=== PATIENT | female | born 1990 | race Two or more races ===

== ENCOUNTER 2024-10-04 12:13 | Emergency (ER) | payer MEDICAID, SELFPAY ==
[2024-10-04 13:39] VITALS: BP 117/79; PULSE 70; RESP 18; TEMP 37.2; O2SAT 99
--- NOTE | 2024-10-04 13:59 | XR_ITS ---
Examination: Complete OB ultrasound, less than 14 weeks, transabdominal Date and time of exam: October 04, 2024 1532 hrs. Indications: Vaginal bleeding today Technique: Obstetrical ultrasound images less than 14 weeks performed via transabdominal imaging Findings: Uterus 12.1 x 4.7 x 5.9 cm Empty intrauterine gestational sac 1.12 cm corresponds to 7 weeks 0 days gestational age No pole No cardiac activity Right ovary 2.8 x 1.7 x 2.1 cm arterial flow Left ovary obscured by bowel gas Impression: Empty intrauterine gestational sac corresponding to 7 weeks 0 days gestational age Recommend transvaginal pelvic sonography follow-up to exclude demise
--- NOTE | 2024-10-04 14:01 | PD.EDRME ---
Rapid Medical Screening Exam RME Arrival date/time: 10/04/24 12:13 This is a 34-year-old female that comes in with complaints of vaginal spotting for the last 3 days. Patient states she has not had spotting today but 2 days prior she did. Patient states she is a 5 para 3. Patient has had 1 miscarriage in the past. Patient reports that she is approximately 7 weeks . Patient complains of back pain, abdominal pain patient has had some urinary discomfort.. Patient denies any past medical history. I have greeted and performed a focused initial assessment of this patient. Initial appropriate labs ordered at this time. A comprehensive ED assessment and evaluation of the patient and analysis of all test and completion of medical decision making process will be conducted by additional ED provider. Chief Complaint: Vaginal Bleeding Time Seen by Provider: 10/04/24 13:42 Vital signs: Vital Signs Temperature 98.9 F 10/04/24 13:39 Pulse Rate 70 10/04/24 13:39 Respiratory Rate 18 10/04/24 13:39 Blood Pressure 117/79 10/04/24 13:39 Pulse Oximetry (%) 99 10/04/24 13:39 Oxygen Delivery Method Room Air 10/04/24 13:39
[2024-10-04 14:35] LABS: Basophils % (Auto) 0 % (0-2.5); Eosinophils # (Auto) 0.2 Thou/mm3 (0.0-0.5); Eosinophils % (Auto) 2 % (0-10); Hematocrit 40.5 % (36.0-46.0); Hemoglobin 13.8 g/dL (12.0-16.0); Immature Granulocytes % (Auto) 0 % (0-0); Immature Granulocytes Auto 0.03 Thou/mm3 (0.00-0.00); Lymphocytes % (Auto) 24 % (10-50); Mean Corpuscular HGB Conc 34.1 g/dl (31.0-37.0); Mean Corpuscular Hemoglobin 29.5 pg (25.0-35.0); Mean Corpuscular Volume 87 fL (80-100); Monocytes # (Auto) 0.4 Thou/mm3 (0.0-0.8); Monocytes % (Auto) 6 % (0-12); Neutrophils # (Auto) 5.4 Thou/mm3 (1.8-7.7); Neutrophils % (Auto) 68 % (37-80); Nucleated Red Blood Cell % 0 /100 WBC (0); Platelet Count 222 Thou/mm3 (140-440); RDW Standard Deviation 39.8 fL (36.4-46.3); Red Blood Count 4.68 Miln/mm3 (4.00-5.20)
[2024-10-04 15:06] LABS: Alanine Aminotransferase 21 U/L (10-49); Albumin, Serum 4.9 gm/dL (3.5-5.0); Albumin/Globulin Ratio 1.8 (1.2-2.2); Alkaline Phosphatase 86 U/L (46-116); Anion Gap 7 (7-16); Aspartate Amino Transferase 21 U/L (0-34); BUN/Creatinine Ratio 13 Ratio (12-20); Bilirubin,Total 0.5 mg/dL (0.3-1.2); Blood Urea Nitrogen 9 mg/dL (9-23); Calcium 9.4 mg/dL (8.3-10.6); Calcium (Corrected) 9.4 mg/dL (8.5-10.1); Carbon Dioxide 26.7 mMol/L (20.0-31.0); Chloride 103 mMol/L (98-107); Creatinine (Component) 0.7 mg/dL (0.6-1.3); Globulin 2.7 gm/dL (2.3-3.5); Glucose 119 mg/dL (74-106); Lipase 52 U/L (12-53); Osmolality,Calculated 273 (275-295); Potassium 3.7 mMol/L (3.4-5.1); Sodium 137 mMol/L (136-145); Total Protein 7.6 gm/dL (5.7-8.2); eGFR > 60 See Note
[2024-10-04 15:14] LABS: Collection Type, Urine Voided
[2024-10-04 15:22] LABS: Bacteria,Urine 1+; Bilirubin,Urine Negative (Negative); Blood,Urine Negative (Negative); Clarity,Urine Clear (Clear/Hazy); Color,Urine Lt-Yellow (Lt Yel-Yel); Glucose, Urine Negative (Negative); Ketones,Urine Negative (Negative); Leukocyte Esterase,Urine Negative (Negative); Nitrite,Urine Negative (Negative); PH,Urine 6.5 (5.0-7.0); Protein,Urine Negative (Neg - Trace); RBC,Urine 1 /hpf (0-3); Specific Gravity,Urine 1.012 (1.001-1.035); Squamous Epithelial Cell,Urine 2 /hpf (0-5); Urobilinogen,Urine Negative mg/dL (0.0-1.0); WBC,Urine < 1 /hpf (0-5)
[2024-10-04 15:24] LABS: Beta HCG,Quantitative 5582 mIU/mL (<5.0)
[2024-10-04 15:30] LABS: Culture Indicated,Urine Yes
[2024-10-04 16:41] VITALS: BP 120/76; PULSE 71; RESP 16; TEMP 37.1; O2SAT 100
--- NOTE | 2024-10-04 16:48 | PD.EDADULT ---
ED General RME/HPI General Chief complaint: Vaginal Bleeding Stated complaint: VAGINAL BLEEDING Time Seen by Provider: 10/04/24 13:42 Arrival date/time: 10/04/24 12:13 CC: Vaginal spotting low abdominal cramping low back pain onset 4 days ago, the patient is G5, P3 estimated at 7 weeks. Patient denies fever chills shortness of breath or difficulty breathing. RME / HPI RME / HPI narrative: 10/04/24 12:13 This is a 34-year-old female that comes in with complaints of vaginal spotting for the last 3 days. Patient states she has not had spotting today but 2 days prior she did. Patient states she is a 5 para 3. Patient has had 1 miscarriage in the past. Patient reports that she is approximately 7 weeks . Patient complains of back pain, abdominal pain patient has had some urinary discomfort.. Patient denies any past medical history. I have greeted and performed a focused initial assessment of this patient. Initial appropriate labs ordered at this time. A comprehensive ED assessment and evaluation of the patient and analysis of all test and completion of medical decision making process will be conducted by additional ED provider. Related Data Previous Rx's ?Medication ?Instructions ?Recorded cyclobenzaprine 10 mg tablet 10 mg PO HS #14 tabs 10/01/23 meloxicam 7.5 mg tablet 7.5 mg PO QDAY #10 tabs 10/01/23 Allergies Allergy/AdvReac Type Severity Reaction Status Date / Time No Known Allergies Allergy Verified 10/04/24 12:18 Review of Systems Review of Systems Narrative Review of Systems: GEN: No fever, no chills, no weight loss EYES: No discharge, no visual changes, no pain HEENT: No ear pain, no congestion, no sore throat PULM: No shortness of breath, no cough, no congestion CV: No chest pain, no dyspnea on exertion, no palpitations GI: No nausea, no vomiting, no diarrhea, no pain, no constipation : No frequency, no urgency, no dysuria MUSC/SKEL: No joint pain, no back pain SKIN: No rash PSYCH: No hallucinations, no depression HEME/LYMPH: No easy bleeding or bruising tendencies NEURO: No weakness, no headache Past Medical History Past Medical History CARDIAC: Negative Congestive Heart Failure RESPIRATORY: Negative Chronic Obstructive Pulmonary Disease (COPD) GENITOURINARY: Negative Renal Disease ENDOCRINE: Negative Diabetes Mellitus Type 1 or Diabetes Mellitus Type 2 Surgical History SURGICAL: Positive Section Social History SMOKING STATUS: Never smoker ED Exam Narrative Physical exam: [General: Not in any acute distress Head normocephalic HEENT: Within acceptable limits Neck is supple nontender Chest equal chest rise nontender to palpation Respiratory: Clear to auscultation no wheezes crackles or rubs CV: Rate rhythm is regular no murmurs rubs or clicks Abdomen is distended secondary to body habitus soft nontender no masses positive bowel sounds all 4 quadrants Back: No CVA tenderness no spinous process tenderness from cervical spine thoracic and lumbar spine Skin: Intact no petechiae rash induration ulceration or crepitus Extremities: Moving all extremity against resistance cap refill less than 2 seconds neurosensory intact Neuro: Awake alert oriented x3 Glascow coma 15 no focal deficits] Course Quality Measures none Orders Category Date Time Status US OB <= 14 weeks fetus Stat Exams 10/04/24 13:59 Completed ABO/RH Type - Stat Lab 10/04/24 14:18 Completed Beta HCG,Quantitative Stat Lab 10/04/24 14:18 Completed CBC Stat Lab 10/04/24 14:18 Completed Comprehensive Metabolic Panel Stat Lab 10/04/24 14:18 Completed Lipase Stat Lab 10/04/24 14:18 Completed Urinalysis, C/S if Indicated Stat Lab 10/04/24 14:30 Completed Urine Culture Stat Lab 10/04/24 14:30 Received Vital Signs Vital signs: Vital Signs Temperature 98.9 F 10/04/24 13:39 Pulse Rate 70 10/04/24 13:39 Respiratory Rate 18 10/04/24 13:39 Blood Pressure 117/79 10/04/24 13:39 Pulse Oximetry (%) 99 10/04/24 13:39 Oxygen Delivery Method Room Air 10/04/24 13:39 [facility] Patient data External records reviewed:: [facility] previous records Clinical information provided by:: patient Social determinants that could affect healthcare access:: none Patient has the following chronic illnesses:: Obesity How is presenting disease/condition affected by chronic disease/condition?: uneffected by Evaluation data The following diagnostics were reviewed and interpreted by me:: lab results and radiology exam(s) Lab and/or radiology exams considered but not ordered:: CBC shows no acute leukocytosis anemia thrombocytopenia CMP shows no acute electrolyte imbalances renal impairment transaminitis or T. bili elevation ABO Rh is a positive Quantitative hCG is 5500 Ultrasound shows a gestational sac at 7 weeks 0 days with no heart tones Interpretation Summary: Threatened miscarriage Medications Medications considered but not ordered:: None Medication administrations:: None Consultations Consultation(s) initiated? (list below): No Diagnosis Differential Diagnosis ED Complaint MDM: Ectopic first trimester vaginal bleeding threatened miscarriage Most likely diagnosis given after review of the tests above:: Threatened miscarriage Admission Indicated Admission indicated?: not indicated Explain why admission is indicated or not indicated:: Stable for outpatient follow-up Admission Request Was there a request for admission?: No Disposition Plan Disposition Plan: Discharge Discharge Attestation Discharge Attestation: The patient and all family members were given an opportunity to ask questions and understood the discharge instructions. Discharge instructions specifically effects, indications for sooner follow up or return to the emergency department, and the expected course of current diagnosis. Patient condition: Stable Medical Decision Making Differential Diagnosis Differential Diagnosis: Ectopic first trimester vaginal bleeding threatened miscarriage Lab Data 10/04/24 14:18 10/04/24 14:18 Labs: Lab Results 10/04/24 10/04/24 Range/Units 14:18 14:30 WBC 8.0 (3.6-11.0) Thou/mm3 RBC 4.68 (4.00-5.20) Miln/mm3 Hgb 13.8 (12.0-16.0) g/dL Hct 40.5 (36.0-46.0) % MCV 87 (80-100) fL MCH 29.5 (25.0-35.0) pg MCHC 34.1 (31.0-37.0) g/dl RDW Std Deviation 39.8 (36.4-46.3) fL Plt Count 222 (140-440) Thou/mm3 Neut % (Auto) 68 (37-80) % Lymph % (Auto) 24 (10-50) % Snyder % (Auto) 6 (0-12) % Eos % (Auto) 2 (0-10) % Baso % (Auto) 0 (0-2.5) % Neut # (Auto) 5.4 (1.8-7.7) Thou/mm3 Lymph # (Auto) 2.0 (1.0-4.8) Thou/mm3 Snyder # (Auto) 0.4 (0.0-0.8) Thou/mm3 Eos # (Auto) 0.2 (0.0-0.5) Thou/mm3 Baso # (Auto) 0.0 (0.0-0.2) Thou/mm3 Immature Gran # (Auto) 0.03 H (0.00-0.00) Thou/mm3 Absolute Nucleated RBC 0.00 (0.00-0.00) Thou/mm3 Immature Gran % 0 (0-0) % Nucleated RBC % 0 (0) /100 WBC Sodium 137 (136-145) mMol/L Potassium 3.7 (3.4-5.1) mMol/L Chloride 103 (98-107) mMol/L Carbon Dioxide 26.7 (20.0-31.0) mMol/L Anion Gap 7 (7-16) BUN 9 (9-23) mg/dL Creatinine 0.7 (0.6-1.3) mg/dL Estim Creat Clear Calc Not Performed. eGFR > 60 (60 - ) See Note BUN/Creatinine Ratio 13 (12-20) Ratio Glucose 119 H (74-106) mg/dL Calculated Osmolality 273 L (275-295) Calcium 9.4 (8.3-10.6) mg/dL Corrected Calcium 9.4 (8.5-10.1) mg/dL Total Bilirubin 0.5 (0.3-1.2) mg/dL AST 21 (0-34) U/L ALT 21 (10-49) U/L Alkaline Phosphatase 86 (46-116) U/L Total Protein 7.6 (5.7-8.2) gm/dL Albumin 4.9 (3.5-5.0) gm/dL Globulin 2.7 (2.3-3.5) gm/dL Albumin/Globulin Ratio 1.8 (1.2-2.2) Lipase 52 (12-53) U/L Beta HCG, Quant 5582 (<5.0) mIU/mL Ur Collection Type Voided Urine Color Lt-Yellow (Lt Yel-Yel) Urine Clarity Clear (Clear/Hazy) Urine pH 6.5 (5.0-7.0) Ur Specific [place] 1.012 (1.001-1.035) Urine Protein Negative (Neg - Trace) Urine Glucose (UA) Negative (Negative) Urine Ketones Negative (Negative) Urine Blood Negative (Negative) Urine Nitrite Negative (Negative) Urine Bilirubin Negative (Negative) Urine Urobilinogen (Auto) Negative (0.0-1.0) mg/dL Ur Leukocyte Esterase Negative (Negative) Urine RBC 1 (0-3) /hpf Urine WBC < 1 (0-5) /hpf Ur Squamous Epith Cells 2 (0-5) /hpf Urine Bacteria 1+ A (None) Ur Culture Indicated? Yes Blood Type O Positive Comment Comment Blood Bank Wristband ID Yes Discharge Plan Plan Patient Disposition: HOME (Self Care) Patient condition on transfer: Stable Prescriptions/Referrals Prescriptions/Med Rec: No Action meloxicam 7.5 mg tablet 7.5 mg PO QDAY Qty: 10 0RF cyclobenzaprine 10 mg tablet 10 mg PO HS Qty: 14 0RF Referrals: Evan Alan MD [Primary Care Provider] - In 1 week Problem List Clinical Impression: Threatened miscarriage Patient/Caregiver Discharge Instructions Other Activity Instructions:: Follow-up with your OB or return the emergency room in 3 to 4 days for reassessment both quantitative hCG and ultrasound. Education Materials: ED Possible Miscarriage ... Print Language: Citizen Of [place] Stand Alone Forms: Lidya Award Info., Work/School Release, Patient Portal Info Letter PA/DHRUV Supervising Physician PA/[employer] Supervising Physician: Jose Bland ENP
== END 2024-10-04 16:55 | disposition home or self-care (01) ==
PROVIDERS: Nurse Practitioner Family; Emergency Provider Emergency Medicine; PCP Family Medicine
DX: O20.0 Threatened abortion (principal); Z3A.01 Less than 8 weeks gestation of pregnancy
CPT/HCPCS: 36415; 76801; 80053; 81001; 83690; 84702; 85025; 86900; 86901; 87086; 99284

== ENCOUNTER 2024-10-08 17:05 | Emergency (ER) | payer MEDICAID, SELFPAY ==
[2024-10-08 17:38] VITALS: BP 118/80; PULSE 77; RESP 16; TEMP 36.9; O2SAT 98; BMI 33.8
--- NOTE | 2024-10-08 17:56 | PD.EDVAGBL ---
ED OB Contraction Preg RMI/HPI General Chief complaint: Vaginal Bleeding Stated complaint: Vaginal bleeding X 5 days, 8 weeks OB Time Seen by Provider: 10/08/24 17:10 Arrival date/time: 10/08/24 17:05 RME / HPI RME / HPI Narrative: 34-year-old female patient 5 para 3 1, about 7 weeks , came in for evaluation regarding continued vaginal bleeding. Patient was seen here 4 days ago for vaginal bleeding, ultrasound was done and hCG was done also. Patient was advised to return to emergency room for further evaluation. Patient continued to have bleeding at least changing 2 pads per day with passing of blood clots. Patient also complaining of pelvic discomfort. I reviewed patient's ultrasound during that time, and showed gestational sac which is empty. Related Data Previous Rx's ?Medication ?Instructions ?Recorded cyclobenzaprine 10 mg tablet 10 mg PO HS #14 tabs 10/01/23 meloxicam 7.5 mg tablet 7.5 mg PO QDAY #10 tabs 10/01/23 Allergies Allergy/AdvReac Type Severity Reaction Status Date / Time No Known Allergies Allergy Verified 10/04/24 12:18 Review of Systems Review of Systems Narrative Review of Systems: Review of system reviewed and within normal limits except mentioned in HPI ED Exam Narrative Physical exam: VITAL SIGNS: Reviewed. GENERAL APPEARANCE: Alert and interactive, follows commands, no acute distress, HEAD AND FACE: Non-traumatic. ENT: PERRL, pink conjunctivitis, eyelid no trauma, Mucous membrane moist. NECK: Supple, nontender, no nuchal rigidity. CHEST: No tenderness, no crepitus, no paradoxical movement, no retractions. LUNGS: Clear, well ventilated, symmetric, no rales, no wheezing, no ronchi, no stridor, good breath sounds bilaterally. HEART: Regular rate, regular rhythm, no murmur, no gallops. ABDOMEN: Soft, positive bowel sounds, nondistended, no guarding, nontender, no rebound, no masses, RECTAL: Deferred. GENITAL: Deferred. NEUROLOGICAL: Gross motor function intact sensory function intact, Appropriate for age. MUSCULOSKELETAL: low back nontender, full range of motion. EXTREMITIES: Nontender, full range of motion. SKIN: Color pink, dry, no rash, no lacerations, no abrasions, no contusions. LYMPHATICS: Deferred. Course Quality Measures none Orders Category Date Time Status BMP [Basic Metabolic Panel] Stat Lab 10/08/24 18:17 Completed Beta HCG,Quantitative Stat Lab 10/08/24 18:17 Completed CBC [CBC] Stat Lab 10/08/24 18:17 Completed UA, C/S IF [Urinalysis, C/S if Indicated] Stat Lab 10/08/24 18:00 Completed Vital Signs Vital signs: Vital Signs Temperature 98.5 F 10/08/24 17:38 Pulse Rate 77 10/08/24 17:38 Respiratory Rate 16 10/08/24 17:38 Blood Pressure 118/80 10/08/24 17:38 Pulse Oximetry (%) 98 10/08/24 17:38 Oxygen Delivery Method Room Air 10/08/24 17:38 Vaginal Bleeding MDM Narrative MDM Narrative: 34-year-old female patient 5 para 3 1, about 7 weeks , came in for evaluation regarding continued vaginal bleeding. Patient was seen here 4 days ago for vaginal bleeding, ultrasound was done and hCG was done also. Patient was advised to return to emergency room for further evaluation. Patient continued to have bleeding at least changing 2 pads per day with passing of blood clots. Patient also complaining of pelvic discomfort. I reviewed patient's ultrasound during that time, and showed gestational sac which is empty. Laboratory workup is significant for a significant drop of hCG today's hCG was noted to be 471 from more than 5000 plus about 4 days ago. CBC showed no anemia. Patient data External records reviewed:: None Clinical information provided by:: none Social determinants that could affect healthcare access:: none Patient has the following chronic illnesses:: None How is presenting disease/condition affected by chronic disease/condition?: no chronic disease Evaluation data The following diagnostics were reviewed and interpreted by me:: lab results Lab and/or radiology exams considered but not ordered:: None Interpretation Summary: Laboratory workup is significant for a significant drop of hCG today's hCG was noted to be 471 from more than 5000 plus about 4 days ago. CBC showed no anemia. Patient stable for discharge. Medications / Prescriptions Medications or Prescriptions considered but not ordered:: None Medication administrations:: None Consultations Consultation(s) initiated? (list below): No Diagnosis Vaginal Bleeding Differential Diagnosis: missed , vaginal bleeding and other Most likely diagnosis given after review of the tests above:: Spontaneous Admission Indicated Admission indicated?: not indicated Explain why admission is indicated or not indicated:: Stable for charge Admission Request Was there a request for admission?: No Disposition Plan Disposition Plan: Discharge Discharge Attestation Discharge Attestation: The patient was given an opportunity to ask questions and understood the discharge instructions. Discharge instructions specifically effects, indications for sooner follow up or return to the emergency department, and the expected course of current diagnosis. Patient condition: Stable Discharge Plan Plan Patient Disposition: HOME (Self Care) Prescriptions/Referrals Prescriptions/Med Rec: No Action meloxicam 7.5 mg tablet 7.5 mg PO QDAY Qty: 10 0RF cyclobenzaprine 10 mg tablet 10 mg PO HS Qty: 14 0RF Referrals: No Primary/Family,Physician [Primary Care Provider] - In 1 week Problem List Clinical Impression: Spontaneous Patient/Caregiver Discharge Instructions Discharge Activity: activity as tolerated Education Materials: Understanding Miscarriage: Recovery, Miscarriage Trying Again Additional Instructions: Thank you for the opportunity for serving you today. You are stable for discharged . You are advised to: Follow-up with your PCP in 1 to 2 days Return to ED for worsening of symptoms Increase oral fluids Print Language: Vietnamese Stand Alone Forms: Lidya Award Info., Patient Portal Info Letter MISSY/DHRUV Supervising Physician MISSY/DHRUV Supervising Physician: MD Marisel
[2024-10-08 18:28] LABS: Basophils % (Auto) 0 % (0-2.5); Eosinophils # (Auto) 0.2 Thou/mm3 (0.0-0.5); Eosinophils % (Auto) 3 % (0-10); Hematocrit 42.1 % (36.0-46.0); Hemoglobin 14.2 g/dL (12.0-16.0); Immature Granulocytes % (Auto) 0 % (0-0); Immature Granulocytes Auto 0.04 Thou/mm3 (0.00-0.00); Lymphocytes # (Auto) 2.2 Thou/mm3 (1.0-4.8); Lymphocytes % (Auto) 23 % (10-50); Mean Corpuscular HGB Conc 33.7 g/dl (31.0-37.0); Mean Corpuscular Hemoglobin 29.2 pg (25.0-35.0); Mean Corpuscular Volume 87 fL (80-100); Monocytes # (Auto) 0.5 Thou/mm3 (0.0-0.8); Monocytes % (Auto) 6 % (0-12); Neutrophils # (Auto) 6.5 Thou/mm3 (1.8-7.7); Neutrophils % (Auto) 68 % (37-80); Nucleated Red Blood Cell % 0 /100 WBC (0); Platelet Count 213 Thou/mm3 (140-440); Red Blood Count 4.86 Miln/mm3 (4.00-5.20); White Blood Count 9.5 Thou/mm3 (3.6-11.0)
[2024-10-08 18:41] LABS: Collection Type, Urine Clean Catch
[2024-10-08 18:45] LABS: Anion Gap 7 (7-16); BUN/Creatinine Ratio 15 Ratio (12-20); Beta HCG,Quantitative 471 mIU/mL (<5.0); Blood Urea Nitrogen 12 mg/dL (9-23); Calcium 9.8 mg/dL (8.3-10.6); Carbon Dioxide 26.3 mMol/L (20.0-31.0); Chloride 103 mMol/L (98-107); Creatinine (Component) 0.8 mg/dL (0.6-1.3); Estimated Creatinine Clearance 99.5 mL/min (>60); Glucose 94 mg/dL (74-106); Osmolality,Calculated 271 (275-295); Sodium 136 mMol/L (136-145); eGFR > 60 See Note
[2024-10-08 18:46] LABS: Bilirubin,Urine Negative (Negative); Blood,Urine 3+ (Negative); Clarity,Urine Clear (Clear/Hazy); Color,Urine Colorless (Lt Yel-Yel); Culture Indicated,Urine Not Indicated; Glucose, Urine Negative (Negative); Ketones,Urine Negative (Negative); Leukocyte Esterase,Urine Negative (Negative); Nitrite,Urine Negative (Negative); Protein,Urine Trace (Neg - Trace); RBC,Urine 773 /hpf (0-3); Squamous Epithelial Cell,Urine < 1 /hpf (0-5); Urobilinogen,Urine Negative mg/dL (0.0-1.0); WBC,Urine 3 /hpf (0-5)
[2024-10-08 19:22] VITALS: BP 134/76; PULSE 89; RESP 18; TEMP 36.6; O2SAT 99
== END 2024-10-08 20:31 | disposition home or self-care (01) ==
PROVIDERS: Nurse Practitioner Family; Emergency Provider Emergency Medicine
DX: O03.9 Complete or unspecified spontaneous abortion without complication (principal)
CPT/HCPCS: 36415; 80048; 81001; 84702; 85025; 99283